=== PATIENT | male | born 1985 | race Caucasian/White ===

== ENCOUNTER 2024-12-17 15:08 | Emergency (ER) | payer OTHER, SELFPAY ==
[2024-12-17 15:20] VITALS: BP 146/91; PULSE 94; RESP 18; TEMP 36.9; O2SAT 99
--- NOTE | 2024-12-17 15:31 | ED.SKABFB ---
HPI - Skin/Abscess/Foreign Bdy General Chief complaint: Skin/Abscess/Foreign Body Stated complaint: Skin Sore Time Seen by Provider: 12/17/24 15:34 Source: patient, RN notes reviewed and old records reviewed Mode of arrival: ambulatory Limitations: no limitations History of Present Illness HPI narrative: 38 year old male who presets to express care with complaints of rash with areas of irritation and excoriation on right forearm with some weeping of blood noted. 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 States that initial rash about 2 weeks but excoriated area in past few days with bleeding noted. area of rash also noted to left arm but no bleeding from area. Patient reports that he has been taking Benadryl for his symptoms. Patient reports no known fevers, chills or sweats. MD complaint: rash and other (excoriation with some bloody weeping noted on right forearm) Onset (ago): week(s) (2) Severity scale (1-10): 8 Quality: burning and other (soreness) Treatments prior to arrival: other (Benadryl) Related Data Allergies Allergy/AdvReac Type Severity Reaction Status Date / Time meloxicam AdvReac Unknown Nausea and Verified 12/17/24 15:09 Vomiting naproxen AdvReac Unknown Nausea and Verified 12/17/24 15:09 Vomiting Review of Systems Review of Systems: CONSTITUTIONAL: Denies fever, chills, or sweats. CARDIOVASCULAR: Denies chest pain, palpitations, or edema. RESPIRATORY: Denies cough or dyspnea. SKIN: Reports skin rash on forearms past 2 weeks with areas of excoriation and bloody weeping from right forearm for past few days, reports painful and itchy MUSCULOSKELETAL: Denies joint pain or myalgia. NEUROLOGIC: Denies headache, numbness, or weakness. All systems reviewed & are unremarkable except as noted in HPI and below PMFSH Past Medical History Medical History (Updated 12/19/24 @ 07:45 by Doreen Mccullough NP) Asthma as child Social History Social History (Updated 12/18/24 @ 16:55 by Doreen Mccullough NP) Smoking status: Current every day smoker Tobacco type: e-cigarettes/vaping Alcohol intake: current Alcohol use details: social Living arrangements: with family Gender identity (if verbalized by the patient): Male Comments At time of signature, agree with nursing past medical, surgical, social and family history. There is no relevant family history pertinent to the presenting complaint Exam Narrative: GENERAL: Well-appearing, well-nourished, and in no acute distress. HEAD: Normocephalic, atraumatic. EYES: PERRLA, conjunctivae clear, and EOMI. ENT: Mucous membranes moist. Oropharynx without edema, erythema or lesions. NECK: Supple. No lymphadenopathy CHEST: Clear to auscultation. No respiratory distress.SAO2 99% on room air HEART: Regular rate and rhythm. SKIN: Warm, dry.? Patches of erythema and edema to bilateral forearms which are itchy with area of excoriation to right forearm weeping blood, works with concrete. NEURO:? Alert and oriented x3. PSYCH: Normal mood and affect Course Course Emergency Course: Patient is aware of diagnosis, understands and agrees to treatment plan.? Anticipatory guidance given.? Patient agrees to follow-up as directed and is aware of reasons to seek care at the emergency department. Portions of this record may have been created with voice recognition software Level of Care: Express Care Visit Vital Signs Vital signs: Vital Signs Temperature 36.9 C 12/17/24 15:20 Pulse Rate 94 12/17/24 15:20 Respiratory Rate 18 12/17/24 15:20 Blood Pressure 146/91 H 12/17/24 15:20 Pulse Oximetry 99 12/17/24 15:20 Oxygen Delivery Room Air 12/17/24 15:20 Temperature 36.9 C 12/17/24 15:20 Pulse Rate 94 12/17/24 15:20 Respiratory Rate 18 12/17/24 15:20 Blood Pressure 146/91 H 12/17/24 15:20 Pulse Oximetry 99 12/17/24 15:20 Oxygen Delivery Room Air 12/17/24 15:20 Reviewed MDM - Skin/Abscess/Foreign Bdy MDM Narrative Medical decision making narrative: Does not appear at this time to be erythema multiforme, bullous, SJS, TEN; no evidence at this time to suggest RMSF, endocarditis or Lyme disease; patient looks well, nontoxic and is tolerating oral intake; no neurologic signs or symptoms; no headache, photophobia or neck pain; afebrile; appropriate for initial outpatient treatment; discussed the importance of follow-up, patient agrees; question, viral exanthema, contact dermatitis, allergic dermatitis, eczema, urticaria, [ xx ]. No soft palate or uvula edema, no tongue, lip edema or other mucosal involvement, no respiratory compromise, no stridor, no wheezing, no wheezing, no history of syncope, no hypotension, no nausea, vomiting, or diarrhea.? Instructed patient to go to nearest ER immediately for any worsening symptoms including but not limited to: fever, spreading rash, pain, sore throat, headache, dizziness, chest pain, trouble breathing, or any symptoms concerning to the patient. Differential Diagnosis Differential diagnosis: Likely abscess of skin or subcutaneous tissue, cellulitis and contact dermatitis Medical Records Attestation: I reviewed the patient's medical records. Critical Care Time Critical Care Time Critical Care Time: No Discharge Plan Discharge Clinical Impression: Contact dermatitis Qualifiers: Contact dermatitis type: irritant Contact dermatitis trigger: other chemical product Qualified Code(s): L24.5 - Irritant contact dermatitis due to other chemical products Cellulitis Qualifiers: Site of cellulitis: extremity Site of cellulitis of extremity: upper extremity Laterality: right Qualified Code(s): L03.113 - Cellulitis of right upper limb Patient Disposition: Home Condition: Stable Instructions: Antibiotic Form, Contact Dermatitis (ED), Cellulitis (ED) Additional Instructions: Wash skin twice daily with liquid Dial soap apply triamcinolone ointment to rash twice daily never apply to the face watch for any increasing infection--redness, swelling, drainage Prednisone taper take as prescribed with food follow up with PCP in 7-10 days for a wound check recheck if develop fever, chills, increasing symptom Go to the ER if your symptoms become worse of if ANY new symptoms develop Pepcid 20 mg daily for 10 days Zyrtec 10 mg 10 days Cephalexin 3 times daily for 10 days take all of prescription If your symptoms persist, change or worsen significantly before you can contact your personal physician then please, without delay, go to the emergency department for further evaluation. Follow-up with PCP in 7-10 days or sooner if needed Follow up with PCP soon in regards to your blood pressure which is elevated above threshold for referral. Blood pressure above 120/80 may indicate pre-hypertension. 146/91 Patient Language: Khmer Prescriptions: New prednisone 10 mg tablet 10 mg PO DIRECTED Qty: 21 0RF Rx Instructions: see taper instructions 6 tabs day 1, 5 tabs day 2. Four tabs day 3, 3 tabs day 4. Two tabs day 5, 1 tab day 6 take with food famotidine [Pepcid] 20 mg tablet 20 mg PO DAILY Qty: 10 0RF cephalexin 500 mg capsule 500 mg PO Q8H Qty: 30 0RF Rx Instructions: Take all of prescription triamcinolone acetonide 0.1 % ointment 1 applic topical BID Qty: 80 0RF Follow-up/Referrals: PHYSICIAN,SENIOR BIOSTATISTICIAN/GROUP LEADER [Primary Care Provider, Internal Medicine] Time of Disposition: 15:44 Quality Grover Coma Scale Eyes: Open Verbal: Oriented and Alert Motor: Follows Commands Grover Coma Total Score: 15
== END 2024-12-17 15:51 | disposition home or self-care (01) ==
PROVIDERS: Emergency Provider Registered Nurse
DX: L24.5 Irritant contact dermatitis due to other chemical products (principal); L03.113 Cellulitis of right upper limb; F17.290 Nicotine dependence, other tobacco product, uncomplicated
CPT/HCPCS: 99203; G0463